=== PATIENT | female | born 1940 | race Caucasian/White ===

== ENCOUNTER 2018-04-19 12:39 | Inpatient (IN) ==
[2018-04-19] MEDS ORDERED: IOPAMIDOL 100 ML BOTTLE IV ONE (12:40)
[2018-04-19 13:27] LABS: Basophils # (Auto) 0.1 K/mcL (0.0-0.3); Basophils % (Auto) 1.1 % (0.0-2.0); Eosinophils # (Auto) 0 K/mcL (0.0-0.7); Eosinophils % (Auto) 0 % (0.0-7.0); Granulocytes % (Auto) 64.3 % (38.0-78.0); Lymphocytes # (Auto) 1.2 K/mcL (1.5-4.8); Lymphocytes % (Auto) 22.5 % (15.5-49.0); Mean Cell Volume 91.7 fL (80.0-100.0); Mean Corpuscular HGB Conc 33.5 g/dL (31.0-36.0); Mean Corpuscular Hemoglobin 30.7 pg (26.0-34.0); Monocytes # (Auto) 0.7 K/mcL (0.1-0.9); Monocytes % (Auto) 12.1 % (1.0-12.0); Platelet Count 183 K/mcL (140-440); RBC 4.25 M/mcL (4.00-5.20); Red Cell Distribution Width 13.4 % (11.5-14.5)
--- NOTE | 2018-04-19 13:47 | Cat Scan Report ---
CLINICAL INFORMATION: Numbness in the feet and chest COMPARISON: None. TECHNIQUE: Axial noncontrast-enhanced images through the brain. FINDINGS: No acute intracranial hemorrhage. No subdural hematoma. No subarachnoid hemorrhage. No intra-axial hemorrhage. No well-defined focal intra-axial attenuation abnormality or localized mass effect. No midline shift. There may be a subtle lacunar infarct in the right globus pallidus although this is not certain. There is white matter abnormality in both parietal lobes most consistent with small vessel ischemic change in this 78-year-old patient Brainstem and cerebellum are negative. Basilar cisterns are negative. No calvarial fracture. No lytic lesion. Incidental note is made of hyperostosis in interna frontalis IMPRESSION: 1. White matter abnormality as above 2. No acute or focal abnormality The exam was performed using radiation dose optimization techniques including, but not limited to, automated exposure control, adjustment of the mA and/or kV according to patient size and use of iterative reconstruction technique. Interpreted and Authenticated by: Shivam Marx 04/19/18
[2018-04-19 13:53] LABS: ALT/SGPT 37 U/l (0-40); Albumin 3.9 gm/dL (3.2-5.2); Albumin/Globulin Ratio 1.3 (1.0-2.3); Alkaline Phosphatase 104 U/L (39-117); Blood Urea Nitrogen 15 mg/dl (8-23)
[2018-04-19] MEDS ORDERED: ONDANSETRON 4 MG/2 ML VIAL ONE (14:38)
[2018-04-19] MEDS ORDERED: ONDANSETRON 4 MG/2 ML VIAL IV ONE ×2 (14:39→19:14)
[2018-04-19] MEDS ORDERED: METOPROLOL TARTRATE 5 MG/5 ML VIAL IV ONE (14:45)
--- NOTE | 2018-04-19 15:27 | Emergency Department Note ---
Weakness HPI - General Chief complaint: Weakness Stated complaint: weakness, falls, dizziness Time Seen by Provider: 04/19/18 14:26 Source: patient Mode of arrival: ambulatory Limitations: no limitations - History of Present Illness HPI Narrative: This 78-year-old female is accompanied by her and daughter Janell. Reported is an episode where she seemed to nearly space out and or faint and collapsed and her was able to help her some. She fell some into the wall and went down to the ground without any specific injury. She was not shaky before afterwards. She has not had previous similar except that she has tripped or fallen and felt dizzy in the past. In the emergency room during triage and initial assessments she has not been very able to report exactly where she is but this has been off and on, struggling with her words. Family reports that this has been off and on in the past similar to this but this seems to be a bit worse. She has taken some rare pain medications even recently because of cracked ribs that occurred couple weeks ago. She was scheduled to get a chest x-ray for progression in follow-up today. Her last dose of pain medication she reports was last evening. Janell indicates that she has troubles with hydration from time to time. Patient remembers feeling some dizziness and hot. She is now having episodes that seem to start from her feet or legs and come upward through her torso to her chest and head neck area of hotness and buzzing feeling. REVIEW OF SYSTEMS: No fever, chills, sweats. No sore throat, runny nose. No chest pain, palpitations. No cough, shortness of breath, wheeziness. No abdominal pain, nausea, vomiting, diarrhea. No dysuria. No back pain. Denies rashes. Denies headaches. Has some history of memory difficulties, not remembering what she has said. At the time seems to be very astute. Evaluation for dementia demonstrated that she seemed to be very alert and interactive and acute and appropriate and was not diagnosed with dementia. Because of her previous episode of possible twitching and/or turning up of 1 of her corners of her mouth, she has been on an aspirin 81 mg daily since. Has some history with anxiety, depression and hallucinations/psychosis. She was on an antipsychotic for a little while. Has seen a psychiatrist and/or neurologist. Has a history of Graves' disease and has been on methimazole. Sees Dr. Laurie Burkett from [facility] in [place]. Dose was recently reduced from her methimazole half of a pill daily 6 days a week to 5 days a week. She has a history of osteopenia but also some fractures. She is on alendronate. Has been reports some significant snoring and sometimes seems to pause or have difficulty breathing but is not been evaluated for sleep apnea. Has blood pressure history and takes medications. - Related Data Home Medications Medication Instructions Recorded Confirmed Alendronate Sodium [Fosamax] 70 mg PO WEEKLY 04/19/18 04/19/18 Aspirin [Rambo Chewable Aspirin] 81 mg PO QDAY 04/19/18 04/19/18 LORazepam [Ativan] 0.5 - 1 tab PO Q4HP PRN 04/19/18 04/19/18 Methimazole 5 mg PO QDAY 04/19/18 04/19/18 Venlafaxine HCl [Venlafaxine HCl 225 mg PO QDAY 04/19/18 04/19/18 ER] Vitamin D3 10,000 unit PO QDAY 04/19/18 04/19/18 amLODIPine [Norvasc] 5 mg PO DAILY 04/19/18 04/19/18 lamoTRIgine [LaMICtal] 50 mg PO DAILY 04/19/18 04/19/18 Previous Rx's Medication Instructions Recorded HYDROcodone/APAP 5/325MG [[place] 1 - 2 tab PO Q4HP PRN #20 tab 04/12/18 5/325Mg] Allergies Allergy/AdvReac Type Severity Reaction Status Date / Time atorvastatin [From Lipitor] Allergy Mild Cramping Verified 04/19/18 12:43 of the Muscles lovastatin Allergy Mild Cramping Verified 04/19/18 12:43 of the Muscles Past Medical History - Past Medical History Medical history: Reports: hyperlipidemia, thyroid disease (hyperthyroid, methimazole since 2016 (Dr. Laurie Ness, [facility], [place]).), other ( Kidney stones.). Denies: asthma, atrial fibrillation, cancer, COPD, coronary artery disease, CVA, myocardial infarction, renal disease, TIA (Although at one point was thought to be the case but was more of twitching this is happened on several occasions.) Psychiatric history: Reports: anxiety, depression, other (hallucinations/ psychosis disorder (mild)) Surgical history ED: Reports: cholecystectomy - Social History smoking status: Never smoker Alcohol use: Reports: None Drug use: Reports: none. Denies: marijuana Physical Exam Limitations: no limitations Neurological: Present: alert, CN II-XII intact, other (She is able to spell world forwards and backwards. No focal findings. Some slowed responses. Clock drawing test is with 11 numbers fairly correct and the minute and our hands in correct position primarily.). Absent: motor sensory deficit Patient oriented to: Present: person, place Speech: Present: fluid speech, expressive aphasia (Minimal; at times seems to be slowed and having difficulty finding words.) Cranial nerves: EOM function (II, III, IV, ): Normal, facial palsy (VII): Normal, tongue deviation (XII): Normal Cerebellar function: finger to nose: Normal (But slow) Motor strength - LUE: 4/5 Motor strength - RUE: 4/5 Motor strength - LLE: 4/5 Motor strength - RLE: 4/5 Upper motor neuron exam: quynh neglect: Absent bilaterally, pronator drift: Absent bilaterally Psychiatric: Present: flat affect, serious Skin: Present: warm, dry Course Course Narrative: 1:02 PM - near syncopal or true syncopal episode with some history of memory dysfunction and speech difficulties. Blood pressure initially was very high so we will do CT scan of her head. She is a poor historian and although it seems like she did not hit her head must rule out a bleed. Exam is nonfocal. Patient was seen to have oxygen saturation dipped to 88% while resting. She has no previous diagnosis of sleep apnea but her does indicate that she sometimes does snore significantly and sometimes seems like she pauses were struggles to breathe. We will do a chest x-ray. Approximately 4 PM - possibility of sepsis without elevated white count or temperature exist. Limited explanation for this patient's changes which are still somewhat subtle. Will order a lactic acid. 4:42 PM - agitation seems to be escalating. We will give lorazepam 0.25 mg. She also has 1 L of oxygen because her saturations are sometimes dipping below 90%. Chest x-ray demonstrates possible chronic or new infiltrates in the bases with pulmonary congestion. I will add a pro-calcitonin. 5:15 PM - living will suggests or indicates not to be aggressive and measures but seems to be missing page 1. Lactic acid was normal at 1.7. Pro-calcitonin pending still. 5:35 PM - I spoke with hospitalist, and discussed care with him. Request for TSH, BNP, CT of the chest before deciding disposition. 6:47 PM - CT of the chest did not show any specific new infiltrate but did demonstrate a sternal fracture without bleed or contusion. Rib fractures were less obvious as well. May be due to patient's movement. I spoke with hospitalist. We will recheck with the radiologist regarding consideration of rule out PE and do an ABG on room air. 7:17 PM -I spoke with Dr. Bo Pichardo, hospitalist, who agrees to see this patient with likelihood of admission. I reported the radiologist did not find any evidence of pulmonary embolus. Vital Signs Temperature 96.9 F L 04/19/18 12:39 Pulse Rate 83 04/19/18 12:39 Respiratory Rate 20 04/19/18 12:39 Blood Pressure 182/107 04/19/18 12:39 Pulse Oximetry (%) 95 04/19/18 12:39 Temperature 99.7 F H 04/20/18 04:15 Pulse Rate 101 H 04/20/18 07:27 Respiratory Rate 20 04/20/18 03:52 Blood Pressure 130/75 04/20/18 03:52 Pulse Oximetry (%) 91 04/20/18 07:27 Weakness - Lab Data Lab results reviewed: Yes I reviewed the patient's lab results. Result diagrams: 04/20/18 03:35 04/20/18 03:35 Lab Results 04/19/18 04/19/18 04/19/18 Range/Units 12:41 12:53 12:53 WBC 5.5 (4.5-11.0) K/mcL RBC 4.25 (4.00-5.20) M/mcL Hgb 13.0 (12.0-15.0) g/dL Hct 38.9 (36.0-48.0) % POC Hct (36.0-48.0) % MCV 91.7 (80.0-100.0) fL MCH 30.7 (26.0-34.0) pg MCHC 33.5 (31.0-36.0) g/dL RDW 13.4 (11.5-14.5) % Plt Count 183 (140-440) K/mcL MPV 11.1 H (7.4-10.4) fL Gran % 64.3 (38.0-78.0) % Lymph % (Auto) 22.5 (15.5-49.0) % Carroll % (Auto) 12.1 H (1.0-12.0) % Eos % (Auto) 0 (0.0-7.0) % Baso % (Auto) 1.1 (0.0-2.0) % Gran # 3.5 (1.8-8.0) K/mcL Lymph # (Auto) 1.2 L (1.5-4.8) K/mcL Carroll # (Auto) 0.7 (0.1-0.9) K/mcL Eos # (Auto) 0 (0.0-0.7) K/mcL Baso # (Auto) 0.1 (0.0-0.3) K/mcL VBG Lactic Acid (0.5-2.0) mmol/L POC Sodium (133-145) mmol/L Sodium 141 (133-145) mmol/L POC Potassium (3.3-5.1) mmol/L Potassium 3.9 (3.3-5.1) mmol/L POC Chloride (96-108) mmol/L Chloride 103 (96-108) mmol/L Carbon Dioxide 23 (22-30) mmol/L POC Total CO2 (22-30) mmol/L Anion Gap 15.0 (8-16) POC BUN (8-23) mg/dl BUN 15 (8-23) mg/dl Creatinine 0.5 L (0.6-1.1) mg/dl POC Creatinine (0.6-1.1) mg/dl GFR Calculation 91 Glucose 105 (70-105) mg/dL POC Glucose (70-105) mg/dL Calcium 9.6 (8.6-10.4) mg/dl POC WB Ioniz Calcium (1.16-1.32) mmol/L Total Bilirubin 0.2 (0.0-1.0) mg/dL AST 31 (0-37) U/l ALT 37 (0-40) U/l Alkaline Phosphatase 104 (39-117) U/L Troponin T (0-0.03) ng/ml NT-Pro-B Natriuret Pep < 50.0 (0-450) pg/ml Total Protein 6.8 (5.9-8.4) gm/dL Albumin 3.9 (3.2-5.2) gm/dL Globulin 2.9 (2.2-3.7) gm/dL Albumin/Globulin Ratio 1.3 (1.0-2.3) Procalcitonin (<0.10) ng/mL TSH 3.83 (0.27-5.01) uIU/ml Urine Opiates Screen (NONDETECTED) Ur Opiates Confirm Ur Oxycodone Screen (NONDETECTED) Urine Methadone Screen (NONDETECTED) Ur Methadone Confirm Ur Barbiturates Screen (NONDETECTED) Ur Barbiturate Confirm Ur Phencyclidine Scrn (NONDETECTED) Urine PCP Confirm Ur Amphetamines Screen (NONDETECTED) U Amphetamines Confirm U Benzodiazepines Scrn (NONDETECTED) U Benzodiazepine Confm Urine Cocaine Screen (NONDETECTED) Urine Cocaine Confirm U Cannabinoids Confirm U Marijuana (THC) Screen (NONDETECTED) 04/19/18 04/19/18 04/19/18 Range/Units 12:53 13:00 15:00 WBC (4.5-11.0) K/mcL RBC (4.00-5.20) M/mcL Hgb (12.0-15.0) g/dL Hct (36.0-48.0) % POC Hct 38.0 (36.0-48.0) % MCV (80.0-100.0) fL MCH (26.0-34.0) pg MCHC (31.0-36.0) g/dL RDW (11.5-14.5) % Plt Count (140-440) K/mcL MPV (7.4-10.4) fL Gran % (38.0-78.0) % Lymph % (Auto) (15.5-49.0) % Carroll % (Auto) (1.0-12.0) % Eos % (Auto) (0.0-7.0) % Baso % (Auto) (0.0-2.0) % Gran # (1.8-8.0) K/mcL Lymph # (Auto) (1.5-4.8) K/mcL Carroll # (Auto) (0.1-0.9) K/mcL Eos # (Auto) (0.0-0.7) K/mcL Baso # (Auto) (0.0-0.3) K/mcL VBG Lactic Acid (0.5-2.0) mmol/L POC Sodium 142 (133-145) mmol/L Sodium (133-145) mmol/L POC Potassium 3.9 (3.3-5.1) mmol/L Potassium (3.3-5.1) mmol/L POC Chloride 105 (96-108) mmol/L Chloride (96-108) mmol/L Carbon Dioxide (22-30) mmol/L POC Total CO2 23 (22-30) mmol/L Anion Gap (8-16) POC BUN 16 (8-23) mg/dl BUN (8-23) mg/dl Creatinine (0.6-1.1) mg/dl POC Creatinine 0.4 L (0.6-1.1) mg/dl GFR Calculation Glucose (70-105) mg/dL POC Glucose 106 H (70-105) mg/dL Calcium (8.6-10.4) mg/dl POC WB Ioniz Calcium 1.22 (1.16-1.32) mmol/L Total Bilirubin (0.0-1.0) mg/dL AST (0-37) U/l ALT (0-40) U/l Alkaline Phosphatase (39-117) U/L Troponin T < 0.01 (0-0.03) ng/ml NT-Pro-B Natriuret Pep (0-450) pg/ml Total Protein (5.9-8.4) gm/dL Albumin (3.2-5.2) gm/dL Globulin (2.2-3.7) gm/dL Albumin/Globulin Ratio (1.0-2.3) Procalcitonin (<0.10) ng/mL TSH (0.27-5.01) uIU/ml Urine Opiates Screen None detected (NONDETECTED) Ur Opiates Confirm Not Reportable Ur Oxycodone Screen None detected (NONDETECTED) Urine Methadone Screen None detected (NONDETECTED) Ur Methadone Confirm Not Reportable Ur Barbiturates Screen None detected (NONDETECTED) Ur Barbiturate Confirm Not Reportable Ur Phencyclidine Scrn None detected (NONDETECTED) Urine PCP Confirm Not Reportable Ur Amphetamines Screen None detected (NONDETECTED) U Amphetamines Confirm Not Reportable U Benzodiazepines Scrn None detected (NONDETECTED) U Benzodiazepine Confm Not Reportable Urine Cocaine Screen None detected (NONDETECTED) Urine Cocaine Confirm Not Reportable U Cannabinoids Confirm Not Reportable U Marijuana (THC) Screen None detected (NONDETECTED) 04/19/18 04/19/18 Range/Units 16:06 17:05 WBC (4.5-11.0) K/mcL RBC (4.00-5.20) M/mcL Hgb (12.0-15.0) g/dL Hct (36.0-48.0) % POC Hct (36.0-48.0) % MCV (80.0-100.0) fL MCH (26.0-34.0) pg MCHC (31.0-36.0) g/dL RDW (11.5-14.5) % Plt Count (140-440) K/mcL MPV (7.4-10.4) fL Gran % (38.0-78.0) % Lymph % (Auto) (15.5-49.0) % Carroll % (Auto) (1.0-12.0) % Eos % (Auto) (0.0-7.0) % Baso % (Auto) (0.0-2.0) % Gran # (1.8-8.0) K/mcL Lymph # (Auto) (1.5-4.8) K/mcL Carroll # (Auto) (0.1-0.9) K/mcL Eos # (Auto) (0.0-0.7) K/mcL Baso # (Auto) (0.0-0.3) K/mcL VBG Lactic Acid 1.7 (0.5-2.0) mmol/L POC Sodium (133-145) mmol/L Sodium (133-145) mmol/L POC Potassium (3.3-5.1) mmol/L Potassium (3.3-5.1) mmol/L POC Chloride (96-108) mmol/L Chloride (96-108) mmol/L Carbon Dioxide (22-30) mmol/L POC Total CO2 (22-30) mmol/L Anion Gap (8-16) POC BUN (8-23) mg/dl BUN (8-23) mg/dl Creatinine (0.6-1.1) mg/dl POC Creatinine (0.6-1.1) mg/dl GFR Calculation Glucose (70-105) mg/dL POC Glucose (70-105) mg/dL Calcium (8.6-10.4) mg/dl POC WB Ioniz Calcium (1.16-1.32) mmol/L Total Bilirubin (0.0-1.0) mg/dL AST (0-37) U/l ALT (0-40) U/l Alkaline Phosphatase (39-117) U/L Troponin T (0-0.03) ng/ml NT-Pro-B Natriuret Pep (0-450) pg/ml Total Protein (5.9-8.4) gm/dL Albumin (3.2-5.2) gm/dL Globulin (2.2-3.7) gm/dL Albumin/Globulin Ratio (1.0-2.3) Procalcitonin < 0.05 (<0.10) ng/mL TSH (0.27-5.01) uIU/ml Urine Opiates Screen (NONDETECTED) Ur Opiates Confirm Ur Oxycodone Screen (NONDETECTED) Urine Methadone Screen (NONDETECTED) Ur Methadone Confirm Ur Barbiturates Screen (NONDETECTED) Ur Barbiturate Confirm Ur Phencyclidine Scrn (NONDETECTED) Urine PCP Confirm Ur Amphetamines Screen (NONDETECTED) U Amphetamines Confirm U Benzodiazepines Scrn (NONDETECTED) U Benzodiazepine Confm Urine Cocaine Screen (NONDETECTED) Urine Cocaine Confirm U Cannabinoids Confirm U Marijuana (THC) Screen (NONDETECTED) - Radiology Data Radiology results reviewed: Yes I reviewed the patient's radiology results. - EKG Data EKG results narrative: No acute coronary syndrome findings. This ECG will be read by a dock manager. Disposition Pt seen by BACKUP ADMINISTRATOR/PA only: No Clinical Impression: Syncope and collapse, Hypoxia, Abnormal chest x-ray, Hallucinations, Hot flashes Disposition: Xfer As Inpt ([facility]) Condition: Fair
[2018-04-19] MEDS ORDERED: 0.9 % SODIUM CHLORIDE 1,000 ML IV ONE (15:45)
--- NOTE | 2018-04-19 16:12 | XRay Report ---
INDICATION: Weakness TECHNIQUE: AP and lateral upright chest x-ray COMPARISON: Chest x-ray dated 08/19/2001 FINDINGS: Mild bibasilar pulmonary parenchymal density may be chronic. Pneumonia is possible and follow-up radiographs are recommended. There is no parenchymal consolidation or mass Upper lobe pulmonary parenchymal vessels are prominent consistent with pulmonary congestion. No evidence for pulmonary edema. Zandra and mediastinum are unchanged. No pleural fluid IMPRESSION: 1. Findings consistent with pulmonary congestion 2. Mild bibasilar parenchymal density. Findings may be chronic. Follow-up radiographs recommended. No parenchymal consolidation Interpreted and Authenticated by: Shivam Marx 04/19/18
[2018-04-19] MEDS ORDERED: LORazepam 2 MG/ML VIAL IV ONE (16:42)
[2018-04-19] MEDS: 0.9 % SODIUM CHLORIDE 1,000 ML IV SCH ×3 (16:56→22:22)
--- NOTE | 2018-04-19 18:24 | Cat Scan Report ---
CLINICAL INFORMATION: Hypoxia COMPARISON: Chest x-rays dated 04/19/2018 and 04/12/2018 TECHNIQUE: Axial contrast enhanced images through the chest. Sagittally and coronally reformatted images. MIP reformatted images. 90 mL contrast material injected intravenously. FINDINGS: Suboptimal evaluation due to inability to suspend respiration. No parenchymal consolidation. Mild lower lobe parenchymal densities most consistent with hypoexpansion or chronic scarring. Findings are not typical of pneumonia. Previous plain film examination demonstrated pulmonary congestion. No definite pulmonary edema. There is no honeycombing. No intralobular septal thickening. No definite emphysema. No bronchiectasis. There is no discrete pulmonary parenchymal mass. No pathologic hilar or mediastinal lymphadenopathy. No axillary adenopathy. No pleural fluid. No pericardial fluid. Upper abdomen is negative. No thoracic compression fracture. Incidental note is made of a T4 hemangioma. Left-sided rib fractures are better visualized on plain film examination. There is a fracture of the body of the sternum. No significant retrosternal hematoma. There is no pneumothorax. No hemothorax. Scapula and clavicles are negative bilaterally. IMPRESSION: 1. Left-sided rib fractures are not well demonstrated on CT scan. This is probably secondary to patient motion. No pneumothorax or hemothorax 2. Fracture of the body of the sternum. No significant retrosternal hematoma 3. No focal pulmonary parenchymal infiltrate The exam was performed using radiation dose optimization techniques including, but not limited to, automated exposure control, adjustment of the mA and/or kV according to patient size and use of iterative reconstruction technique. Interpreted and Authenticated by: Shivam Marx 04/19/18
[2018-04-19 18:27] LABS: proBNP < 50.0 pg/ml (0-450)
[2018-04-19 19:48] LABS: Amphetamine Screen,Urine NONE DETECTED (NONDETECTED); Benzodiazepines Screen,Urine NONE DETECTED (NONDETECTED); Cocaine Screen,Urine NONE DETECTED (NONDETECTED); Opiate Screen,Urine NONE DETECTED (NONDETECTED); Oxycodone, Urine Screen NONE DETECTED (NONDETECTED)
--- NOTE | 2018-04-19 20:22 | Internal Med History&Physical ---
Medical - H&P: HPI Patient information: Note initiated : 04/19/18 at 8:14 pm Service Date, if different from initiated Date: [] Patient: Faith Orellana a 78 y/o F admitted on for Weakness, Falls, Dizziness. Chief Complaint: [] History of present illness: Ms. Orellana is a 78 year old F Who presents after a near syncopal event while she was walking in the front door after grocery shopping. She fell into the wall and then went down to the ground without any head trauma sounds. History is obtained from the family as patient is a poor historian. She had no prodromal symptoms. She was in her usual state of health that day earlier per daughter. Per the family seems she was a little more altered than her baseline. She does have some baseline confusion and memory issues. She did fall several weeks ago on dropped some rib fractures on the left was given [place]. Last pain medication she took was last evening. Patient has felt some warmth almost hot flashes at the start in her lower extremities and proceed proximally. And also had buzzing feeling. The only medication changes included decreasing her methimazole recently. And she did start taking a weight loss supplement recently prior to the recent fall , possibly lipozene but the is not entirely sure. She has had episodes in the past that appear to be somewhat similar to this but not as severe per family, history is vague. There is no report of headaches or applications or diaphoresis. does report that she does snore and appears to have gasping episodes in the middle night. In the ER she was found to be 89 sometimes 88% while resting in bed. She did get some Ativan for some agitation. Her blood pressure was found to be quite labile in the ER with systolics ranging from 107-197. Low systolic was after a Lopressor dose. Heart rate between 65 and 102. Patient seems to be calm at this point. But unable to gather review of systems from her she is a poor historian and not answering most of my questions. Workup included a CT chest with contrast because of the chest x-ray with some infiltrates but the CT contrast did not show any pulmonary infiltrates or pulmonary embolism. ABG was unremarkable. 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 Pro-calcitonin TSH and proBNP were unremarkable lactate was unremarkable troponin unremarkable. 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 Denies: asthma, atrial fibrillation, cancer, COPD, coronary artery disease, CVA, myocardial infarction, renal disease, TIA (Although at one point was thought to be the case but was more of twitching this is happened on several occasions.) Psychiatric history: Reports: anxiety, depression, other (hallucinations/ psychosis disorder (mild)) Surgical history ED: Reports: cholecystectomy Family history: Mother had a stroke father had Alzheimer Social history: Patient does not smoke or drink alcohol ambulates independently and lives with Medical - H&P: Meds Home Medications Medication Instructions Recorded Confirmed Type HYDROcodone/APAP 5/325MG [[place] 1 - 2 tab PO Q4HP PRN #20 tab 04/12/18 04/19/18 Rx 5/325Mg] Alendronate Sodium [Fosamax] 70 mg PO WEEKLY 04/19/18 04/19/18 History Aspirin [Rambo Chewable Aspirin] 81 mg PO QDAY 04/19/18 04/19/18 History LORazepam [Ativan] 0.5 - 1 tab PO Q4HP PRN 04/19/18 04/19/18 History Methimazole 5 mg PO QDAY 04/19/18 04/19/18 History Venlafaxine HCl [Venlafaxine HCl 225 mg PO QDAY 04/19/18 04/19/18 History ER] Vitamin D3 10,000 unit PO QDAY 04/19/18 04/19/18 History amLODIPine [Norvasc] 5 mg PO DAILY 04/19/18 04/19/18 History lamoTRIgine [LaMICtal] 50 mg PO DAILY 04/19/18 04/19/18 History Allergies Allergy/AdvReac Type Severity Reaction Status Date / Time atorvastatin [From Lipitor] Allergy Mild Cramping Verified 04/19/18 12:43 of the Muscles lovastatin Allergy Mild Cramping Verified 04/19/18 12:43 of the Muscles Medical - H&P: Exam - Constitutional Vitals: Temp Pulse Resp BP Pulse Ox 96.9 F L 106 H 29 H 148/84 97 04/19/18 12:39 12/17/18 19:19 04/19/18 20:02 04/19/18 20:02 04/19/18 19:19 Exam: General: Awake, No acute Distress Eyes/N/T: EOMI, PEERL, DMM Head/Neck: neck supple, normocephalic atraumatic CV: RRR, No murmurs, normal s1/s2 Pulm: Clear b/l, no wheezing/rhonchi/rales Abd: soft, nontender, +BS x4 Ext: no clubbing/cyanosis/edema Neuro: Will answer occasional simple question but not answering most questions but otherwise no focal deficits, moves all extremities to command, CN 2-12 grossly intact, symmetrical strength b/l upper/lower, sensations intact b/l upper/lower Skin: warm/dry Medical - H&P: Reslt - Labs CBC & Chem 7: 04/19/18 12:53 04/19/18 12:53 Labs: Short CBC 04/19/18 Range/Units 12:53 WBC 5.5 (4.5-11.0) K/mcL Hgb 13.0 (12.0-15.0) g/dL Hct 38.9 (36.0-48.0) % Plt Count 183 (140-440) K/mcL BMP 04/19/18 12:53 Sodium 141 Potassium 3.9 Chloride 103 Carbon Dioxide 23 BUN 15 Creatinine 0.5 L Glucose 105 Calcium 9.6 Cardiac Enzymes 04/19/18 Range/Units 12:53 Troponin T < 0.01 (0-0.03) ng/ml Liver Function 04/19/18 Range/Units 12:53 Total Bilirubin 0.2 (0.0-1.0) mg/dL AST 31 (0-37) U/l ALT 37 (0-40) U/l Alkaline Phosphatase 104 (39-117) U/L Albumin 3.9 (3.2-5.2) gm/dL - Impressions CT brain with old lacunar infarct and chronic ischemic white matter disease CT chest with IV contrast with no pulmonary infiltrates, abnormal mediastinum, or pulmonary embolism EKG with normal sinus rhythm Medical - H&P: A/P - Narrative A/P Narrative: A: *Hypertensive urgency: Likely multifactorial with possibly missed medication plus suspected obstructive sleep apnea, low on the differential would include pheochromocytoma or other endocrine abnormality or secondary hypertension causes *Acute on chronic encephalopathy: May have had transient hypoxia from JAYMIE and narcotics and other meds (possibly weight loss med component) *Mild hypoxia: Suspect from JAYMIE and narcotics *Suspected JAYMIE given history from family: *Anxiety/depression/psychosis NOS/Poor memory: *Hyperthyroidism: TSH WNL * P: -Continue home blood pressure medications with as needed IV -Hold narcotics -IV fluid hydration -A.m. cortisol and urine catecholamine test -Orthostatic vital signs -Monitor on telemetry - -ppx: Lovenox
[2018-04-19] MEDS ORDERED: ACETAMINOPHEN 325 MG TABLET PO PRN (21:07)
[2018-04-19] MEDS ORDERED: 0.9 % SODIUM CHLORIDE 1,000 ML IV SCH (21:07)
[2018-04-19] MEDS ORDERED: ENALAPRILAT 1.25 MG/ML VIAL IV PRN (21:07)
[2018-04-19] MEDS ORDERED: ONDANSETRON 4 MG/2 ML VIAL IV PRN (21:07)
[2018-04-19] MEDS ORDERED: IPRATROPIUM/ALBUTEROL 3 ML AMPUL.NEB NEB PRN (21:07)
[2018-04-19] MEDS: LORazepam 0.5 MG TABLET PO PRN (21:59)
[2018-04-19] MEDS: PRAZOSIN 1 MG CAPSULE PO SCH (21:59)
[2018-04-19] MEDS: 0.9 % SODIUM CHLORIDE 10 ML SYRINGE IV SCH (21:59)
[2018-04-20] MEDS: LORazepam 0.5 MG TABLET PO PRN ×4 (03:01→19:17)
[2018-04-20] MEDS: 0.9 % SODIUM CHLORIDE 10 ML SYRINGE IV SCH ×3 (05:11→23:51)
[2018-04-20 06:53] LABS: Basophils # (Auto) 0 K/mcL (0.0-0.3); Basophils % (Auto) 0 % (0.0-2.0); Eosinophils # (Auto) 0 K/mcL (0.0-0.7); Eosinophils % (Auto) 0 % (0.0-7.0); Granulocytes % (Auto) 85.4 % (38.0-78.0); Lymphocytes # (Auto) 0.8 K/mcL (1.5-4.8); Lymphocytes % (Auto) 9.3 % (15.5-49.0); Mean Cell Volume 91.7 fL (80.0-100.0); Mean Corpuscular HGB Conc 33.5 g/dL (31.0-36.0); Mean Corpuscular Hemoglobin 30.7 pg (26.0-34.0); Monocytes # (Auto) 0.4 K/mcL (0.1-0.9); Monocytes % (Auto) 5.3 % (1.0-12.0); Platelet Count 170 K/mcL (140-440); RBC 4.12 M/mcL (4.00-5.20); Red Cell Distribution Width 13.3 % (11.5-14.5)
--- NOTE | 2018-04-20 07:15 | Internal Med Progress Note ---
Medical - PN: Subj Patient information: Note initiated : 04/20/18 at 7:08 am Service Date, if different from initiated Date: [] Patient: Faith Orellana a 78 y/o F admitted on 04/19/18 for Weakness, Falls, Dizziness. Chief Complaint: [] Interval history: Ms. Orellana is a 78 year old F Who presents after a near syncopal event while she was walking in the front door after grocery shopping. She fell into the wall and then went down to the ground without any head trauma sounds. History is obtained from the family as patient is a poor historian. She had no prodromal symptoms. She was in her usual state of health that day earlier per daughter. Per the family seems she was a little more altered than her baseline. She does have some baseline confusion and memory issues. She did fall several weeks ago on dropped some rib fractures on the left was given [place]. Last pain medication she took was last evening. Patient has felt some warmth almost hot flashes at the start in her lower extremities and proceed proximally. And also had buzzing feeling. The only medication changes included decreasing her methimazole recently. And she did start taking a weight loss supplement recently prior to the recent fall , possibly lipozene but the is not entirely sure. She has had episodes in the past that appear to be somewhat similar to this but not as severe per family, history is vague. There is no report of headaches or applications or diaphoresis. does report that she does snore and appears to have gasping episodes in the middle night. In the ER she was found to be 89 sometimes 88% while resting in bed. She did get some Ativan for some agitation. Her blood pressure was found to be quite labile in the ER with systolics ranging from 107-197. Low systolic was after a Lopressor dose. Heart rate between 65 and 102. Patient seems to be calm at this point. But unable to gather review of systems from her she is a poor historian and not answering most of my questions. Workup included a CT chest with contrast because of the chest x-ray with some infiltrates but the CT contrast did not show any pulmonary infiltrates or pulmonary embolism. ABG was unremarkable. 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 Pro-calcitonin TSH and proBNP were unremarkable lactate was unremarkable troponin unremarkable. 04/20 Answering questions more appropriately for me this morning than she did yesterday in the ER. Little restless overnight per nursing. Now sleeping. finally able to get UA, treating for UTI. Review of Systems: denies headache/fever/chills/nausea/vomiting/chest or abdominal pain/cough/ dyspnea/diarrhea. Otherwise see above. - Constitutional Vitals: Vital Signs Temp Pulse Resp BP Pulse Ox 99.7 F H 98 H 20 130/75 95 04/20/18 04:15 04/19/18 23:39 04/20/18 03:52 04/20/18 03:52 04/20/18 03:52 Period Temp Pulse Resp BP Sys/L[place]is Pulse Ox Last 24 Hr 96.9 F-99.9 F 69-110 15-32 93-204/58-144 90-100 Intake and Output 04/19/18 04/20/18 04/20/18 21:59 05:59 13:59 Intake Total 1250 / 1250 300 / 300 Output Total 500 / 500 Balance 1250 / 1250 -200 / -200 Weight 84.414 kg Intake & Output: Intake & Output 04/19/18 04/20/18 04/20/18 21:59 05:59 13:59 Intake Total 1250 / 1250 300 / 300 Output Total 500 / 500 Balance 1250 / 1250 -200 / -200 Weight 84.414 kg Intake: IV 1250 / 1250 Sodium Chloride 0.9% 1,000 ml @ 1250 / 1250 250 mls/hr IV .Q4H [facility] Rx#: [id number] Oral 300 / 300 Output: Urine Catheter Amount 500 / 500 Other: Urine Appearance Clear Uretheral ([place]greg[place]) Clear Urine Color Straw Uretheral (Mcgregor) Pale Exam: General: Awake, No acute Distress Eyes/N/T: EOMI, Head/Neck: neck supple, CV: RRR, No murmurs, normal s1/s2 Pulm: Clear b/l, no wheezing/rhonchi/rales Abd: soft, nontender, +BS x4 Ext: no clubbing/cyanosis/edema Neuro: Answering questions appropriately today. no focal deficits, moves all extremities spontaneously Skin: warm/dry Medical - PN: Obj Da - Labs CBC & Chem 7: 04/20/18 03:35 04/20/18 03:35 Labs: Abnormal Lab Results 04/20/18 04/19/18 04/19/18 03:35 13:00 12:53 MPV 12.1 H Gran % 85.4 H Lymph % (Auto) 9.3 L [place] % (Auto) Lymph # (Auto) 0.8 L Creatinine 0.5 L POC Creatinine 0.4 L POC Glucose 106 H 04/19/18 12:53 MPV 11.1 H Gran % Lymph % (Auto) [place] % (Auto) 12.1 H Lymph # (Auto) 1.2 L Creatinine POC Creatinine POC Glucose Meds: Medications Acetaminophen (Tylenol) 650 mg PO Q6HP PRN PRN Reason: PAIN/FEVER > 101 Last Admin: 04/20/18 03:30 Dose: 650 mg Albuterol/Ipratropium (Duoneb) 3 ml NEB Q4HRT PRN PRN Reason: Bronchospasm Amlodipine Besylate (Norvasc) 5 mg PO ONCE ONE Stop: 04/20/18 20:12 Aspirin (Aspirin) 81 mg PO QDAY [facility] Enalaprilat (Vasotec) 0 mg IV Q2HP PRN PRN Reason: Hypertension Enoxaparin Sodium (Lovenox) 40 mg SQ DAILY [facility] Sodium Chloride (Sodium Chloride 0.9%) 1,000 mls @ 100 mls/hr IV .Q10H [facility] Stop: 04/20/18 17:06 Last Admin: 04/19/18 21:58 Dose: 100 mls/hr Lamotrigine (Lamictal) 50 mg PO DAILY [facility] Lorazepam (Ativan) 0.5 - 1 mg PO Q4HP PRN PRN Reason: Anxiety Last Admin: 04/20/18 03:01 Dose: 1 mg Methimazole (Methimazole) 5 mg PO MoTuThFrSa@0900 [facility] Ondansetron HCl (Zofran) 4 mg IV Q4HP PRN PRN Reason: Nausea And Vomiting Prazosin HCl (Minipress) 2 mg PO HS [facility] Last Admin: 04/19/18 21:59 Dose: 2 mg Sodium Chloride (Saline Flush) 10 ml IV Q8 [facility] Last Admin: 04/20/18 05:11 Dose: 10 ml Venlafaxine HCl (Effexor) 225 mg PO QDAY [facility] Medical - PN: A/P - Time Spent With Patient Total time spent is greater than 50% in coordination of care (as documented) at patient's floor/unit and/or counseling patient: - Narrative A/P Narrative: A: *Hypertensive urgency: Likely multifactorial with possibly missed medication plus suspected obstructive sleep apnea, low on the differential would include pheochromocytoma or other endocrine abnormality or secondary hypertension causes -AM cortisol ok *Acute on chronic encephalopathy: May have had transient hypoxia from JAYMIE and narcotics + other meds (possibly weight loss med component) -CT brain with old lacunar infarct and small vessel chronic ischemic dz -UDS neg *Mild hypoxia: Suspect from JAYMIE and narcotics -CT chest no infiltrate or PE *Suspected JAYMIE given history from family: *Anxiety/depression/psychosis with hallucinations NOS/Poor memory: *Hyperthyroidism: TSH WNL *UTI: P: -Continue qhs prazosin and prn IV -Hold narcotics -IV fluid hydration -catecholamine urinary test pending -Monitor on telemetry -UA pending, rocephin -nocturnal pulse ox -ppx: Lovenox
[2018-04-20 07:18] LABS: Cortisol,AM 19.3 ug/dl (6.2-19.4)
[2018-04-20 07:21] LABS: ALT/SGPT 38 U/l (0-40); Albumin 3.7 gm/dL (3.2-5.2); Albumin/Globulin Ratio 1.2 (1.0-2.3); Alkaline Phosphatase 92 U/L (39-117); Bilirubin,Direct < 0.2 mg/dL (0.0-0.3); Blood Urea Nitrogen 12 mg/dl (8-23); Gamma Glutamyl Transpeptidase 83 U/L (5-36); Uric Acid 3.9 mg/dL (2.5-8.0)
[2018-04-20 08:19] LABS: Band Neutrophils % 2 % (0-10); Lymphocytes % 12 % (15-49); Monocytes % (Manual) 5 % (1-12); Platelet Estimate NORMAL (NORMAL); RBC Morphology NORMAL (NORMAL); Segmented Neutrophils % 81 % (38-78)
[2018-04-20] MEDS: 0.9 % SODIUM CHLORIDE 1,000 ML IV SCH (08:36)
[2018-04-20 08:52] LABS: Appearance,Urine CLEAR; Bacteria,Urine 0 /hpf (0); Bilirubin,Urine NEG (NEG); Color,Urine YELLOW; Glucose,Urine (UA) NEGATIVE (NEG); Leukocyte Esterase,Urine 25 /uL (NEG); Mucus,Urine MANY /hpf (0); Protein,Urine 30 mg/dL (NEG); Specific Gravity,Urine 1.031 (1.000-1.035); Urine Blood >=1.0 mg/dL (<0.03); Urine RBC > 182 /hpf (0-1); Urine Squamous Epithelial Cell 1 /hpf (0-4); Urine WBC 20 /hpf (0-4)
[2018-04-20] MEDS: VENLAFAXINE 75 MG TABLET PO SCH (08:58)
[2018-04-20] MEDS: ASPIRIN 81 MG TAB.CHEW PO SCH (08:59)
[2018-04-20] MEDS: lamoTRIgine 100 MG TABLET PO SCH (08:59)
[2018-04-20] MEDS: ENOXAPARIN 40 MG/0.4 ML SYRINGE SQ SCH (08:59)
[2018-04-20] MEDS ORDERED: METHIMAZOLE 5 MG TABLET PO SCH (09:00)
[2018-04-20] MEDS: ACETAMINOPHEN 650 MG/65 ML BOTTLE IV PRN ×3 (09:00→19:18)
[2018-04-20] MEDS ORDERED: MAGNESIUM SULFATE 2 GM/50 ML BAG IV ONE (09:32)
[2018-04-20] MEDS: cefTRIAXone 1 GM VIAL IV SCH (10:02)
[2018-04-20] MEDS: OLANZapine 5 MG TABLET PO SCH ×2 (16:51→19:18)
[2018-04-20] MEDS: PRAZOSIN 1 MG CAPSULE PO SCH (19:18)
[2018-04-20] MEDS ORDERED: amLODIPine 5 MG TABLET PO ONE (20:11)
[2018-04-21] MEDS: LORazepam 0.5 MG TABLET PO PRN (03:10)
[2018-04-21] MEDS: 0.9 % SODIUM CHLORIDE 10 ML SYRINGE IV SCH ×2 (05:59→09:23)
--- NOTE | 2018-04-21 07:13 | Internal Med Progress Note ---
Medical - PN: Subj Patient information: Note initiated : 04/21/18 at 7:08 am Service Date, if different from initiated Date: [] Patient: Faith Orellana a 78 y/o F admitted on 04/19/18 for Weakness, Falls, Dizziness. Chief Complaint: [] Interval history: Ms. Orellana is a 78 year old F Who presents after a near syncopal event while she was walking in the front door after grocery shopping. She fell into the wall and then went down to the ground without any head trauma sounds. History is obtained from the family as patient is a poor historian. She had no prodromal symptoms. She was in her usual state of health that day earlier per daughter. Per the family seems she was a little more altered than her baseline. She does have some baseline confusion and memory issues. She did fall several weeks ago on dropped some rib fractures on the left was given [place]. Last pain medication she took was last evening. Patient has felt some warmth almost hot flashes at the start in her lower extremities and proceed proximally. And also had buzzing feeling. The only medication changes included decreasing her methimazole recently. And she did start taking a weight loss supplement recently prior to the recent fall , possibly lipozene but the is not entirely sure. She has had episodes in the past that appear to be somewhat similar to this but not as severe per family, history is vague. There is no report of headaches or applications or diaphoresis. does report that she does snore and appears to have gasping episodes in the middle night. In the ER she was found to be 89 sometimes 88% while resting in bed. She did get some Ativan for some agitation. Her blood pressure was found to be quite labile in the ER with systolics ranging from 107-197. Low systolic was after a Lopressor dose. Heart rate between 65 and 102. Patient seems to be calm at this point. But unable to gather review of systems from her she is a poor historian and not answering most of my questions. Workup included a CT chest with contrast because of the chest x-ray with some infiltrates but the CT contrast did not show any pulmonary infiltrates or pulmonary embolism. ABG was unremarkable. 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 Pro-calcitonin TSH and proBNP were unremarkable lactate was unremarkable troponin unremarkable. 04/20 Answering questions more appropriately for me this morning than she did yesterday in the ER. Little restless overnight per nursing. Now sleeping. finally able to get UA, treating for UTI. 04/21 Blood pressure better, controlled some agitation last night. 24-hour urine study finished. - Constitutional Vitals: Vital Signs Temp Pulse Resp BP Pulse Ox 98.1 F 94 H 17 172/96 97 04/21/18 00:47 04/21/18 02:51 04/21/18 02:51 04/21/18 02:51 04/21/18 02:51 Period Temp Pulse Resp BP Sys/Loomis Pulse Ox Last 24 Hr 98.1 F-100.3 F 81-101 15-30 133-172/69-96 91-97 Intake and Output 04/20/18 04/21/18 04/21/18 21:59 05:59 13:59 Intake Total 1660 / 1660 200 / 200 Output Total 425 / 425 1999 / 1999 Balance 1235 / 1235 -1800 / -1800 Weight 87.407 kg Intake & Output: Intake & Output 04/20/18 04/21/18 04/21/18 21:59 05:59 13:59 Intake Total 1660 / 1660 200 / 200 Output Total 425 / 425 1999 / 1999 Balance 1235 / 1235 -1800 / -1800 Weight 87.407 kg Intake: IV 1180 / 1180 Oral 480 / 480 200 / 200 Output: Urine Catheter Amount 1999 Void Amount 425 / 425 Other: Meal Dinner Percent of Meal Consumed 40% Feeding Ability Assist with Tray Set Up Urine Appearance Cloudy Uretheral ([place]gregor) Cloudy Urine Color Light Minal Uretheral (Mcgregor) Straw Exam: General: Awake, No acute Distress Eyes/N/T: EOMI, Head/Neck: neck supple, CV: RRR, No murmurs, normal s1/s2 Pulm: Clear b/l, no wheezing/rhonchi/rales Abd: soft, nontender, +BS x4 Ext: no clubbing/cyanosis/edema Neuro: alert and awake, moves all extremities spontaneously Skin: warm/dry Medical - PN: Obj Da - Labs CBC & Chem 7: 04/20/18 03:35 04/21/18 07:55 Labs: Abnormal Lab Results 04/20/18 04/20/18 04/20/18 03:35 03:35 03:35 MPV 12.1 H Gran % 85.4 H Lymph % (Auto) 9.3 L [place] % (Auto) Lymph # (Auto) 0.8 L Seg Neutrophils % 81 H Lymphocytes % 12 L Carbon Dioxide 20 L Anion Gap 19.0 H Creatinine 0.5 L POC Creatinine Glucose 114 H POC Glucose Calcium 8.4 L Phosphorus 2.6 L Magnesium 1.4 L GGT 83 H Urine Protein Urine Occult Blood Urine Urobilinogen Ur Leukocyte Esterase Urine RBC Urine WBC Urine Mucus 04/19/18 04/19/18 04/19/18 13:00 12:53 12:53 MPV 11.1 H Gran % Lymph % (Auto) [place] % (Auto) 12.1 H Lymph # (Auto) 1.2 L Seg Neutrophils % Lymphocytes % Carbon Dioxide Anion Gap Creatinine 0.5 L POC Creatinine 0.4 L Glucose POC Glucose 106 H Calcium Phosphorus Magnesium GGT Urine Protein Urine Occult Blood Urine Urobilinogen Ur Leukocyte Esterase Urine RBC Urine WBC Urine Mucus 04/19/18 08:20 MPV Gran % Lymph % (Auto) [place] % (Auto) Lymph # (Auto) Seg Neutrophils % Lymphocytes % Carbon Dioxide Anion Gap Creatinine POC Creatinine Glucose POC Glucose Calcium Phosphorus Magnesium GGT Urine Protein 30 A Urine Occult Blood >=1.0 A Urine Urobilinogen 2.0 A Ur Leukocyte Esterase 25 A Urine RBC > 182 H Urine WBC 20 H Urine Mucus Many A Meds: Medications Acetaminophen (Tylenol) 650 mg PO Q6HP PRN PRN Reason: PAIN/FEVER > 101 Last Admin: 04/20/18 03:30 Dose: 650 mg Albuterol/Ipratropium (Duoneb) 3 ml NEB Q4HRT PRN PRN Reason: Bronchospasm Aspirin (Aspirin) 81 mg PO QDAY [facility] Last Admin: 04/20/18 08:59 Dose: 81 mg Ceftriaxone Sodium (Rocephin) 1 gm IV Q24H [facility] Last Admin: 04/20/18 10:02 Dose: 1 gm Enalaprilat (Vasotec) 0 mg IV Q2HP PRN PRN Reason: Hypertension Enoxaparin Sodium (Lovenox) 40 mg SQ DAILY [facility] Last Admin: 04/20/18 08:59 Dose: 40 mg Acetaminophen (Ofirmev) 650 mg in 65 mls @ 130 mls/hr IV Q6HP PRN PRN Reason: PAIN/FEVER > 101 Last Infusion: 04/20/18 20:13 Dose: Infused Lamotrigine (Lamictal) 50 mg PO DAILY [facility] Last Admin: 04/20/18 08:59 Dose: 50 mg Lorazepam (Ativan) 0.5 - 1 mg PO Q4HP PRN PRN Reason: Anxiety Last Admin: 04/21/18 03:10 Dose: 1 mg Methimazole (Methimazole) 5 mg PO MoTuThFrSa@0900 [facility] Last Admin: 04/20/18 09:00 Dose: Not Given Olanzapine (Zyprexa) 5 mg PO HS [facility] Last Admin: 04/20/18 19:18 Dose: 5 mg Ondansetron HCl (Zofran) 4 mg IV Q4HP PRN PRN Reason: Nausea And Vomiting Pneumococcal Polyvalent Vaccine (Pneumovax 23) 0.5 ml IM .ONCE ONE Stop: 04/21/18 10:01 Prazosin HCl (Minipress) 2 mg PO HS [facility] Last Admin: 04/20/18 19:18 Dose: 2 mg Sodium Chloride (Saline Flush) 10 ml IV Q8 [facility] Last Admin: 04/21/18 05:59 Dose: 10 ml Venlafaxine HCl (Effexor) 225 mg PO QDAY [facility] Last Admin: 04/20/18 08:58 Dose: 225 mg Medical - PN: A/P - Time Spent With Patient Total time spent is greater than 50% in coordination of care (as documented) at patient's floor/unit and/or counseling patient: - Narrative A/P Narrative: A: *Hypertensive urgency: Likely multifactorial with possibly missed medication plus suspected obstructive sleep apnea, low on the differential would include pheochromocytoma or other endocrine abnormality or secondary hypertension causes -AM cortisol ok -improved *Acute on chronic encephalopathy: May have had transient hypoxia from JAYMIE and narcotics + other meds (possibly weight loss med component) -CT brain with old lacunar infarct and small vessel chronic ischemic dz -UDS neg -improving *Mild hypoxia: Suspect from JAYMIE and narcotics -CT chest no infiltrate or PE -on room air *Suspected JAYMIE given history from family: *Anxiety/depression/psychosis with hallucinations NOS/Poor memory: *Hyperthyroidism: TSH WNL *UTI: P: -Continue qhs prazosin with home norvasc and prn IV -Hold narcotics -IV fluid hydration -catecholamine urinary test pending -Monitor on telemetry -UA pending, rocephin -nocturnal pulse ox -recommend sleep study outpt -ppx: Lovenox
[2018-04-21 08:44] LABS: ALT/SGPT 42 U/l (0-40); Albumin 3.7 gm/dL (3.2-5.2); Albumin/Globulin Ratio 1.3 (1.0-2.3); Alkaline Phosphatase 87 U/L (39-117); Bilirubin,Direct < 0.2 mg/dL (0.0-0.3); Blood Urea Nitrogen 9 mg/dl (8-23); Gamma Glutamyl Transpeptidase 79 U/L (5-36); Uric Acid 3.9 mg/dL (2.5-8.0)
--- NOTE | 2018-04-21 08:56 | Discharge Summary ---
Medical - DS: Prov Patient information: Note initiated : 04/21/18 at 8:54 am Service Date, if different from initiated Date: [] Patient: Faith Orellana 78 y/o F admitted on 04/19/18 for Weakness, Falls, Dizziness. Chief Complaint: [] Date of admission: 04/19/18 20:58 Discharge date: 04/21/18 Primary care physician: Cayla Kirkland Consults: 04/19/18 Consult to Physician [CONS] Stat Comment: Consulting Provider: Bo Pichardo Reason For Exam: admission Medical - DS: Meds - Discharge Medications Prescriptions: Prazosin [Minipress] 2 mg PO HS #30 cap Active and Home Medications: Home Medications HYDROcodone/APAP 5/325MG [Gardner 5/325Mg] 1 - 2 tab PO Q4HP PRN #20 tab 04/12/18 [Rx Confirmed 04/19/18 Last Taken Unknown] Alendronate Sodium [Fosamax] 70 mg PO WEEKLY 04/19/18 [History Confirmed Last Taken Unknown] Aspirin [Rambo Chewable Aspirin] 81 mg PO QDAY 04/19/18 [History Confirmed 04/19 Last Taken Unknown] LORazepam [Ativan] 0.5 - 1 tab PO Q4HP PRN 04/19/18 [History Confirmed 04/19/18 Last Taken Unknown] Methimazole 5 mg PO QDAY 04/19/18 [History Confirmed 04/19/18 Last Taken Unknown ] Venlafaxine HCl [Venlafaxine HCl ER] 225 mg PO QDAY 04/19/18 [History Confirmed 04/19/18 Last Taken Unknown] Vitamin D3 10,000 unit PO QDAY 04/19/18 [History Confirmed 04/19/18 Last Taken Unknown] amLODIPine [Norvasc] 5 mg PO DAILY 04/19/18 [History Confirmed 04/19/18 Last Taken Unknown] lamoTRIgine [LaMICtal] 50 mg PO DAILY 04/19/18 [History Confirmed 04/19/18 Last Taken Unknown] Home Medications HYDROcodone/APAP 5/325MG [Gardner 5-325Mg] 1 - 2 tab PO Q4HP PRN #20 tab 04/12/18 [Rx Confirmed 04/19/18 Last Taken Unknown] Alendronate Sodium [Fosamax] 70 mg PO WEEKLY 04/19/18 [History Confirmed Last Taken Unknown] Aspirin [Rambo Chewable Aspirin] 81 mg PO QDAY 04/19/18 [History Confirmed 04/19 Last Taken Unknown] LORazepam [Ativan] 0.5 - 1 tab PO Q4HP PRN 04/19/18 [History Confirmed 04/19/18 Last Taken Unknown] Methimazole 5 mg PO QDAY 04/19/18 [History Confirmed 04/19/18 Last Taken Unknown ] Venlafaxine HCl [Venlafaxine HCl ER] 225 mg PO QDAY 04/19/18 [History Confirmed 04/19/18 Last Taken Unknown] Vitamin D3 10,000 unit PO QDAY 04/19/18 [History Confirmed 04/19/18 Last Taken Unknown] amLODIPine [Norvasc] 5 mg PO DAILY 04/19/18 [History Confirmed 04/19/18 Last Taken Unknown] lamoTRIgine [Lamictal] 50 mg PO DAILY 04/19/18 [History Confirmed 04/19/18 Last Taken Unknown] Prazosin [Minipress] 2 mg PO HS #30 cap 04/21/18 [Rx Last Taken Unknown] Medical - DS: Hosp Hospital course: Ms. Orellana is a 78 year old F Who presents after a near syncopal event while she was walking in the front door after grocery shopping. She fell into the wall and then went down to the ground without any head trauma sounds. History is obtained from the family as patient is a poor historian. She had no prodromal symptoms. She was in her usual state of health that day earlier per daughter. Per the family seems she was a little more altered than her baseline. She does have some baseline confusion and memory issues. She did fall several weeks ago on dropped some rib fractures on the left was given Gardner. Last pain medication she took was last evening. Patient has felt some warmth almost hot flashes at the start in her lower extremities and proceed proximally. And also had buzzing feeling. The only medication changes included decreasing her methimazole recently. And she did start taking a weight loss supplement recently prior to the recent fall , possibly lipozene but the is not entirely sure. She has had episodes in the past that appear to be somewhat similar to this but not as severe per family, history is vague. There is no report of headaches or applications or diaphoresis. does report that she does snore and appears to have gasping episodes in the middle night. In the ER she was found to be 89 sometimes 88% while resting in bed. She did get some Ativan for some agitation. Her blood pressure was found to be quite labile in the ER with systolics ranging from 107-197. Low systolic was after a Lopressor dose. Heart rate between 65 and 102. Patient seems to be calm at this point. But unable to gather review of systems from her she is a poor historian and not answering most of my questions. Workup included a CT chest with contrast because of the chest x-ray with some infiltrates but the CT contrast did not show any pulmonary infiltrates or pulmonary embolism. ABG was unremarkable. 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 Pro-calcitonin TSH and proBNP were unremarkable lactate was unremarkable troponin unremarkable. 04/20 Answering questions more appropriately for me this morning than she did yesterday in the ER. Little restless overnight per nursing. Now sleeping. finally able to get UA, treating for UTI. 04/21 Blood pressure better, controlled some agitation last night. 24-hour urine study finished. stable for discharge. Suspect early dementia likely vascular based on CT brain findings. Discharge diagnosis: Hypertensive urgency acute on chronic encephalopathy mild hypoxia suspected Secondary discharge diagnosis: UTI - Time Spent with Patient Total time spent providing and/or coordinating discharge services: Greater than 30 minutes Medical - DS: Exam - Constitutional Vitals: Vital Signs Temp Pulse Resp BP Pulse Ox 04/21/18 07:25 98.8 F 12 122/77 96 04/21/18 02:51 94 H 17 172/96 97 04/21/18 00:47 98.1 F 81 15 94 04/20/18 20:03 99.4 F H 04/20/18 19:48 92 04/20/18 19:29 20 150/71 04/20/18 19:18 99.6 F H 04/20/18 16:00 99.4 F H 23 H 149/77 94 04/20/18 15:51 21 149/77 04/20/18 15:41 99.5 F H 04/20/18 14:56 99.1 F H 04/20/18 12:16 17 04/20/18 12:14 98.8 F 30 H 137/72 95 04/20/18 10:30 98.7 F 04/20/18 10:00 20 133/69 04/20/18 09:00 100.3 F H Intake and Output 04/20/18 04/21/18 04/21/18 21:59 05:59 13:59 Intake Total 1660 / 1660 200 / 200 240 / 240 Output Total 425 / 425 1999 350 / 350 Balance 1235 / 1235 -1800 / -1800 -110 / -110 Intake: IV 1180 / 1180 Oral 480 / 480 200 / 200 240 / 240 Output: Urine Catheter Amount 1999 350 / 350 Void Amount 425 / 425 Other: Meal Dinner Breakfast Percent of Meal Consumed 40% 100% Feeding Ability Assist with Tray Set Up Independent Urine Appearance Cloudy Clear Uretheral (Mcgregor) Cloudy Clear Urine Color Light Minal Bright Yellow Uretheral (Mcgregor) Straw Bright Yellow Weight 87.407 kg Medical - DS: Data Labs on day of discharge: Labs from last 24 hours 04/21/18 04/19/18 04/19/18 07:55 08:20 08:20 Sodium 142 Potassium 3.3 Chloride 106 Carbon Dioxide 22 Anion Gap 14.0 BUN 9 Creatinine 0.5 L GFR Calculation 91 Glucose 106 H Uric Acid 3.9 Calcium 8.6 Phosphorus 2.0 L Magnesium 2.0 Total Bilirubin 0.4 Direct Bilirubin < 0.2 GGT 79 H AST 79 H ALT 42 H Alkaline Phosphatase 87 Lactate Dehydrogenase 281 H Total Protein 6.6 Albumin 3.7 Globulin 2.9 Albumin/Globulin Ratio 1.3 Triglycerides 139 Ur Random Creatinine 189.0 Ur Random Sodium < 20 Preliminary micro results at discharge 04/19/18 16:00 Blood Culture - Preliminary Blood Medical - DS: A/P - Patient/Caregiver Discharge Instructions Activity: increase activity as tolerated Diet: Regular Diet Additional Instructions: referral to See Pulmonology for possible sleep study 5-10 days Prescriptions: Ciprofloxacin HCl [Cipro] 500 mg PO BID #4 tab Prazosin [Minipress] 2 mg PO HS #30 cap Other Amb Orders: OT Discharge Order Location: None Selected Physical Therapy at Discharge - [facility] Location: None Selected Commode Discharge Order Location: None Selected - Follow up Plan Follow up with: Cayla Kirkland MD [Primary Care Provider] - Disposition: Home Health Service Prognosis: Fair Rehab Potential: Fair
[2018-04-21] MEDS ORDERED: amLODIPine 5 MG TABLET PO SCH (09:00)
[2018-04-21] MEDS: VENLAFAXINE 75 MG TABLET PO SCH (09:19)
[2018-04-21] MEDS: lamoTRIgine 100 MG TABLET PO SCH ×2 (09:19→09:45)
[2018-04-21] MEDS: cefTRIAXone 1 GM VIAL IV SCH (09:19)
[2018-04-21] MEDS: ENOXAPARIN 40 MG/0.4 ML SYRINGE SQ SCH (09:19)
[2018-04-21] MEDS: ASPIRIN 81 MG TAB.CHEW PO SCH (09:19)
[2018-04-21] MEDS ORDERED: PNEUMOCOCCAL 23-VAL P-SAC VAC 0.5 ML VIAL IM ONE (10:00)
[2018-04-21] MEDS ORDERED: PHOSPHORUS 250 MG TABLET PO ONE (10:10)
[2018-04-21] MEDS ORDERED: NEUTRA PHOS 1 PACKET PO ONE (10:30)
== END 2018-04-21 11:13 | disposition home health service (06) | DRG 304 ==
LOC: ED 12:39 → ICU 20:58
PROVIDERS: ADMIT Internal Medicine; ATTEND Internal Medicine
CPT/HCPCS: 80047; 84145; 85014; 97161; 90732; J0131; J0696; J1650; J2060; J2405; J3475; J7030; Q9967